=== PATIENT | female | born 1955 | race Hispanic/Latino ===

== ENCOUNTER 2024-05-10 06:20 | Day surgery (SDC) | payer MEDICARE ==
[2024-05-04 10:50] VITALS: BP 119/61; PULSE 78; RESP 18; TEMP 97.2
[2024-05-04 10:51] LABS: BASOPHILS # (AUTO) 0.04 K/uL (0.00-0.20); BASOPHILS % (AUTO) 0.7 % (0.0-5.0); EOSINOPHILS # (AUTO) 0.13 K/uL (0.00-0.70); EOSINOPHILS % (AUTO) 2.4 % (0.0-8.0); HEMATOCRIT 43.4 % (36-48); IMMATURE GRANULOCYTE ABSOLUTE 0.01 K/uL (0-1); LYMPHOCYTES # (AUTO) 2.1 K/uL (1.0-4.8); LYMPHOCYTES % (AUTO) 37.8 % (21.0-51.0); MEAN CORPUSCULAR HEMOGLOBIN 31.7 pg (27.0-33.0); MEAN CORPUSCULAR HGB CONC 33.4 g/dL (32.0-36.0); MEAN CORPUSCULAR VOLUME 94.8 fL (79-99); MONOCYTES # (AUTO) 0.4 K/uL (0.1-1.0); MONOCYTES % (AUTO) 6.7 % (3.0-13.0); NEUTROPHILS # (AUTO) 2.9 K/uL (1.8-7.7); NEUTROPHILS % (AUTO) 52.2 % (40.0-77.0); PLATELET COUNT (AUTO) 237 K/uL (130-400); RED BLOOD CELL COUNT(AUTO) 4.58 MIL/uL (4.00-5.50); RED CELL DISTRIBUTION WIDTH 12.1 % (11.0-15.5); WHITE BLOOD COUNT (AUTO) 5.5 K/uL (4.8-10.8)
[2024-05-04 11:02] LABS: CREATININE 0.9 mg/dL (0.5-1.0); POTASSIUM 4.4 mmol/L (3.5-5.1)
[~2024-05-10] VITALS: Ht 165.1 cm; Wt 69.9 kg
[2024-05-10] VITALS (17 sets, daily range): BP systolic 115–132; BP diastolic 52–67; PULSE 68–78; RESP 12–16; TEMP 96.3–97.5
[~2024-05-10 06:20] MED LIST: NAPR-1023 PO; SIMV10TA97 PO
[2024-05-10] MEDS: ceFAZolin SODIUM 2 GM VIAL ONE (08:37)
[2024-05-10] MEDS: LACTATED RINGERS 1000ML 1,000 ML IV ONE (08:37)
[2024-05-10] MEDS ORDERED: LIDOCAINE PF 100MG/5ML (2%) SYRINGE 5ML ONE (11:16)
[2024-05-10] MEDS ORDERED: FENTanyl CITRate PF 50 MCG/1 ML 2ML VIAL ONE (11:17)
[2024-05-10] MEDS ORDERED: proPOFol 10 MG/ML 20ML VIAL IV ONE (11:17)
[2024-05-10] MEDS ORDERED: MIDAZOLAM HCL 1 MG/ML 2ML VIAL ONE (11:17)
[2024-05-10] MEDS ORDERED: 0.9%NACL 10ML VIAL ONE (11:30)
[2024-05-10] MEDS ORDERED: phenylEPHRINE HCL 10 MG/ML 1ML VIAL IV ONE (11:30)
[2024-05-10] MEDS ORDERED: dexaMETHasone SOD PHOSPHATE 10MG/ML 1ML VIAL ONE (11:33)
[2024-05-10] MEDS ORDERED: ondanSETRON 4MG INJ ONE (11:33)
[2024-05-10] MEDS ORDERED: ketOROlac 30MG VIAL (30MG/ML) ONE (12:20)
[2024-05-10] MEDS: MEPERIDINE-PF 25 MG/ML SYG ONE (12:47)
[2024-05-10] MEDS ORDERED: ACET-2079 PO (12:50)
== END 2024-05-10 14:10 | disposition home or self-care (01) ==
LOC: DAH 06:20
PROVIDERS: ATTEND Orthopaedic Surgery
DX: S83.282A Other tear of lateral meniscus, current injury, left knee, initial encounter (principal); S83.242A Other tear of medial meniscus, current injury, left knee, initial encounter; M85.80 Other specified disorders of bone density and structure, unspecified site; X58.XXXA Exposure to other specified factors, initial encounter; Y93.89 Activity, other specified; Y92.89 Other specified places as the place of occurrence of the external cause; Y99.8 Other external cause status
CPT/HCPCS: 80048; 85025; 36415; 29882; 29881; A4649 ×2; J7120; J3010; J1100; J2003; J2250; J2704; J2405; J1885; J2175; J2371; J0690; A6223; C1713; A5120; A4215; A4213; A4222; A4221; A4663; A4216; A6450; A4223 ×2; J3490